=== PATIENT | female | born 1990 | race Caucasian/White ===

== ENCOUNTER 2019-04-17 09:42 | Inpatient (IN) | payer MEDICAID ==
[~2019-04-17] VITALS: Ht 167.6 cm; Wt 128.2 kg
[~2019-04-17 09:42] MED LIST: ELIM TOP; PERM120L5 TP
[2019-04-17 10:06] VITALS: BP 119/65; PULSE 107; RESP 19; Ht 167.6 cm; Wt 128.2 kg
--- NOTE | 2019-04-17 11:37 | TRIAGE ---
OB Triage Datetime Report Generated by CPN: 04/17/2019 11:37 Datetime: 04/17/2019 11:12 Membrane Status: Ruptured Datetime: 04/17/2019 10:13 Assessment Type: Triage Maternal Assessment Level of Consciousness: Keenly Alert, Responsive DTR's/Clonus: DTRs 2+; No Clonus Headache: Denies Blurred Vision: No Respiratory Effort: Unlabored; Regular Rhythm; Equal Expansion Breath Sounds, Left: Clear and Equal Breath Sounds, Right: Clear and Equal Nausea/Vomiting: Denies RUQ Epigastric Pain: Denies Lower Extremities Edema: None Degree: None Upper Extremities Edema: None Degree: None Facial Edema: None Fall Risk Assessment History of Falling: (0) No Secondary Diagnosis: (0) No Ambulatory Aid: (0) Bedrest/Nurse Assist IV Therapy: (0) No Gait: (0) Normal/Bedrest/Immobile Mental Status: (0) Oriented to Own Ability Fall Score: 0 Fall Risk Score Definition: No Risk: No action required Datetime: 04/17/2019 10:11 Time of Arrival: 04/17/2019 09:36 EGA: 36.3 Arrived By: Ambulatory Arrived From: Office Chief Complaint: LEAKING Movement: Present Contractions: Denies/Absent Rupture of Membranes: Unsure Vaginal Bleeding: None Vaginal Discharge: Present Recent Sexual Intercouse: Denies Abdominal Trauma: Not Applicable Patient Complaints: Contractions; Cramping Time Provider Notified: 04/17/2019 11:15 Provider Notified: dr burt Initial Plan: NST BPP AND ROM+ Datetime: 04/17/2019 10:03 Vaginal Exam Dilatation (cms): 3.0 Effacement (%): 60 Station: -2 Exam By: Tianna SARMIENTO
[2019-04-17] MEDS ORDERED: LACTATED RINGER'S 1,000 ML IV PRN (11:41)
[2019-04-17] MEDS ORDERED: BUTORPHANOL 2 MG INJ IV PRN ×2 (12:00)
[2019-04-17] MEDS ORDERED: AMPICILLIN 2 GM/NS (PMX) 100 ML IV ONE (12:00)
[2019-04-17] MEDS ORDERED: OXYTOCIN 30 UNITS/LR 500 ML IV SCH ×3 (12:00)
[2019-04-17] MEDS ORDERED: IBUPROFEN 600 MG TAB PO PRN (12:00)
[2019-04-17] MEDS ORDERED: OXYTOCIN 30 UNITS/LR 500 ML IV PRN (12:00)
[2019-04-17] MEDS ORDERED: CARBOPROST 250 MCG INJ IM PRN (12:00)
[2019-04-17] MEDS ORDERED: BETAMET NA PHOS/AC(6 MG/ML) 2 ML INJ SYG IM ONE (12:00)
[2019-04-17] MEDS ORDERED: LIDOCAINE 1% (MPF) 30 ML INJ INJ PRN (12:00)
[2019-04-17] MEDS ORDERED: MISOPROSTOL 200 MCG TAB PR PRN (12:00)
[2019-04-17] MEDS ORDERED: METHYLERGONOVINE 0.2 MG INJ IM PRN (12:00)
[2019-04-17] MEDS: LACTATED RINGER'S 1,000 ML IV SCH ×2 (12:34→21:45)
[2019-04-17] MEDS: AMPICILLIN 1 GM/NS (PMX) 50 ML IV SCH ×2 (17:18→20:54)
[2019-04-17] MEDS ORDERED: INSULIN REGULAR, HUMAN 100 UNIT/1 ML 3ML VIAL SC ONE (17:30)
[2019-04-17] MEDS ORDERED: DEXTROSE 50% 50 ML SYRINGE IV PRN ×2 (18:00)
[2019-04-17] MEDS ORDERED: GLUCOSE GEL 15 GRAM TUBE PO PRN ×2 (18:00)
[2019-04-17] MEDS ORDERED: GLUCOSE GEL 15 GRAM TUBE BUCCAL PRN (18:00)
[2019-04-17] MEDS ORDERED: GLUCAGON 1 MG INJ IM PRN (18:00)
--- NOTE | 2019-04-17 19:34 | QN ---
Documentation Comment progress note patient seen and evaluated no complaints vs stable afebrile ab gravid nt extremity no edema no calf tenderness ve 4-5/60/-2 srom fhr cat 1 toco regular a/ iup at 36 wks ga with prom, admitted for induction with pitocin currently in labor p/ anticipate vaginal delivery SILVIA HERNANDEZ MD Apr 17, 2019 19:33
--- NOTE | 2019-04-17 21:33 | PREAC ---
Date/Time of Note Date/Time of Note DATE: 04/17/19 TIME: 21:33 Anesthesia Eval and Record Evaluation Time Pre-Procedure Interview DATE: 04/17/19 TIME: 21:33 Age 28 Sex female NPO: 8 hrs Preoperative diagnosis intrauterine Planned procedure labor epidural Past Medical History Past Medical History: Includes : Gestational age: (36), Gestational diabetes Surgery & Anesthesia Issues No known issue Meds Anticoagulation: No Beta Mary within 24 hr: No Reason Beta Mary not given: Pt. not on B-Mary Active Scripts Permethrin (Permethrin) 118 Ml Liquid, 118 ML TP QHS, #2 EA Prov:OLIVIA BEAVERS 01/01/16 Permethrin* (Elimite*) 5% Cr, 1 APPLIC TOP ONCE, #1 TUB Prov:SHIRA ROBERT PA-C 12/17/15 Current Medications Lactated Ringer's 1,000 ml @ 125 mls/hr Q8H IV Last administered on 04/17/19at 12:34; Admin Dose 125 MLS/HR; Start 04/17/19 at 11:41 Ampicillin 50 ml @ 100 mls/hr Q4H IV Last administered on 04/17/19at 20:54; Admin Dose 100 MLS/HR; Start 04/17/19 at 16:00 Butorphanol Tartrate (Stadol) 1 mg Q2H PRN IV .PAIN SCALE 1-5; Start 04/17/19 at 12:00 Butorphanol Tartrate (Stadol) 2 mg Q2H PRN IV .PAIN SCALE 6-10; Start 04/17/19 at 12:00 Lidocaine (Xylocaine 1% (Mpf)) 30 ml ONCE PRN INJ .EPISIOTOMY; Start 04/17/19 at 12:00 Oxytocin/Lactated Ringer's 500 ml @ 500 mls/hr ONCE POST IV ; Start 04/17/19 at 12:00 Oxytocin/Lactated Ringer's 500 ml @ 125 mls/hr POST IV ; Start 04/17/19 at 12:00 Ibuprofen (Motrin) 600 mg ONCE PRN PO .PAIN 1-5; Start 04/17/19 at 12:00 Lactated Ringer's 1,000 ml @ 2,000 mls/hr Q30M PRN IV .ANESTHESIA Last admin istered on 04/17/19at 20:52; Admin Dose 2,000 MLS/HR; Start 04/17/19 at 11:41 Oxytocin/Lactated Ringer's 500 ml @ 0 mls/hr ONCE PRN IV .VAGINAL BLEEDING; Start 04/17/19 at 12:00 Methylergonovine Maleate (Methergine) 0.2 mg ONCE PRN IM .VAGINAL BLEEDING; Start 04/17/19 at 12:00 Carboprost Tromethamine (Hemabate) 250 mcg ONCE PRN IM .VAGINAL BLEEDING; Start 04/17/19 at 12:00 Misoprostol (Cytotec) 1,000 mcg ONCE PRN WA .VAGINAL BLEEDING; Start 04/17/19 at 12:00 Oxytocin/Lactated Ringer's 500 ml @ 0 mls/hr FOR AUGMENTATION IV Last administered on 04/17/19at 14:57; Admin Dose 1 MLS/HR; Start 04/17/19 at 12:00 Insulin Aspart (Novolog Insulin Pen) Check Blood gluc... Q4 SC ; Start 04/17/19 at 21:00 Miscellaneous Information 1 ea NOTE XX ; Start 04/17/19 at 18:00 Glucose (Glutose) 15 gm Q15M PRN PO DECREASED GLUCOSE; Start 04/17/19 at 18:00 Glucose (Glutose) 22.5 gm Q15M PRN PO DECREASED GLUCOSE; Start 04/17/19 at 18:00 Dextrose (D50w Syringe) 25 ml Q15M PRN IV DECREASED GLUCOSE; Start 04/17/19 at 18:00 Dextrose (D50w Syringe) 50 ml Q15M PRN IV DECREASED GLUCOSE; Start 04/17/19 at 18:00 Glucagon (Glucagen) 1 mg Q15M PRN IM DECREASED GLUCOSE; Start 04/17/19 at 18:00 Glucose (Glutose) 15 gm Q15M PRN BUCCAL DECREASED GLUCOSE; Start 04/17/19 at 18:00 Meds reviewed: Yes Allergies Coded Allergies: No Known Allergy (Unverified , 12/17/15) Allergies Reviewed: Yes Labs/Studies Labs Reviewed: Reviewed by anesthesiologist Result Diagram: 04/17/19 1215 04/17/19 1215 Laboratory Tests 04/17/19 12:15 Blood Bank Test 04/17/19 12:15 Antibody Identification Completed Antibody Screen POSITIVE Blood Type B NEGATIVE test: N/A Pre-procedure Exam Last vitals Vital Signs Date Temp Pulse Resp B/P (MAP) Pulse Ox O2 O2 Flow FiO2 Time Delivery Rate 04/17/19 97.9 107 19 119/65 Room Air 10:06 (83) Airway: Adequate mouth opening, Adequate thyromental dist Mallampati: Mallampati II Teeth: Normal Lung: Normal Heart: Normal ASA Physical Status ASA physical status: 2 Emergency: None Planned Anesthetic Neuraxial: Epidural Planned Pain Management Epidural, Parenteral pain med Pre-operative Attestations Prior to commencing anesthesia and surgery, the patient was re-evaluated, there was verification of: *The patient's identity *The results of appropriate recent lab work and preoperative vital signs *The above evaluation not changing prior to induction *Anesthetic plan, risk benefits, alternative and complications discussed with patient/family; questions answered; patient/family understands, accepts and wishes to proceed. YAMIL ANDERSON MD Apr 17, 2019 21:33
[2019-04-17] MEDS ORDERED: FENTAnyl 2MCG/ML-ROPIV 0.2% 100 ML ONE (21:36)
[2019-04-17] MEDS ORDERED: ONDANSETRON 4 MG INJ IV PRN (22:00)
[2019-04-17] MEDS ORDERED: DIPHENHYDRAMINE 50 MG INJ IV PRN (22:00)
[2019-04-17] MEDS ORDERED: NALOXONE (0.4 MG/ML) INJ IV PRN (22:00)
--- NOTE | 2019-04-17 22:13 | PAC ---
Date/Time of Note Date/Time of Note DATE: 04/17/19 TIME: 22:13 Post-Anesthesia Notes Post-Anesthesia Note Last documented vital signs Vital Signs Date Temp Pulse Resp B/P (MAP) Pulse Ox O2 O2 Flow FiO2 Time Delivery Rate 04/17/19 97.9 107 19 119/65 Room Air 10:06 (83) Activity: WNL Respiratory function: WNL Cardiovascular function: WNL Mental status: Baseline Pain reasonably controlled: Yes Hydration appropriate: Yes Nausea/Vomiting absent: Yes Comments BP: 118/78 HR: 99 RR: 16 T: 97.9 SaO2: 98% YAMIL ANDERSON MD Apr 17, 2019 22:13
[2019-04-17] MEDS: INSULIN ASPART [NOVOLOG] 3 ML PEN SC SCH (22:27)
[2019-04-18] MEDS: AMPICILLIN 1 GM/NS (PMX) 50 ML IV SCH ×5 (00:13→16:35)
[2019-04-18] MEDS: INSULIN ASPART [NOVOLOG] 3 ML PEN SC SCH ×3 (01:18→09:00)
[2019-04-18] MEDS: LACTATED RINGER'S 1,000 ML IV SCH ×2 (05:49→15:02)
[2019-04-18] MEDS: FENTAnyl 2MCG/ML-ROPIV 0.2% 100 ML BAG EPI SCH ×2 (05:51→14:04)
--- NOTE | 2019-04-18 17:12 | LDN ---
Date/Time of Note Date/Time of Note DATE: 04/18/19 TIME: 17:08 Delivery Summary of normal male infant Weeks of Gestation 36w4d Placenta Delivered: Manually Meconium: none Episiotomy: No Perineal laceration: 0 Anesthesia type: Epidural Estimated blood loss: 150 Sponge & Needle done & correct: Yes All needle counts correct: Yes Any foreign bodies felt in the: No Delivery Information Sex Infant Sex: male Apgars 1 Minute: 8 5 Minute: 9 Suctioning Nose & mouth suctioned at iveth: Yes Delee suction performed: Yes Umbilical Cord Umbilical cord with: 3 Vessels Cord presentations: no nuchal cord Cord Blood was obtained: Yes Mother & Baby Disposition Disposition Mom & Baby to Maternity; Good: Yes Mom transferred to: Other Baby to NICU: No VAHE MUSA MD Apr 18, 2019 17:12
--- NOTE | 2019-04-18 17:25 | HP ---
Date/Time of Note Date/Time of Note DATE: 04/18/19 TIME: 17:15 OB - History Hx of Present Free Text/Dictation 28y.o here at triage at 36w3d with c/o leaking fluid with occasional Uterine contractions initial VE 3/60/-2 clear fluid GBS not known course was unevenful admitted for expectant management. Past Family/Social History * Past Medical, Surgical, Family and Obstetric Histories reviewed from chart. OB Admission Exam Vital Signs Vital Signs Vital Signs Date Temp Pulse Resp B/P (MAP) Pulse Ox O2 O2 Flow FiO2 Time Delivery Rate 04/17/19 97.9 107 19 119/65 Room Air 10:06 (83) Physical Exam HEENT: WNL Heart: Rhythm Normal Lungs: Clear, Equal Abdomen: WNL Extremities: Normal Reflexes: Normal Cervical Dilatation: 3cm Effacement: Other (60%) Station: -2 Membranes: Ruptured Amniotic Fluid: Clear Heart Rate: 140's Accelerations: Accelerations Present Decelerations: No Decelerations Varibility: Moderate Contractions on Admission: >10 Minutes Apart Intensity: Moderate Last 72 hourBlood Glucose Bedside Glucose - 72 Hours Test 04/17/19 17:16 04/17/19 20:58 04/18/19 00:08 04/18/19 01:13 Bedside 210 131 144 135 Glucose mg/dL (70-220) mg/dL (70-220) mg/dL (70-220) mg/dL (70-220) Test 04/18/19 05:15 04/18/19 08:26 04/18/19 11:55 Bedside 110 112 90 Glucose mg/dL (70-220) mg/dL (70-220) mg/dL (70-220) Last 72 hours Lab Results CBC & BMP 04/17/19 12:15 OB Assessment/Plan Other Assessment: A IUP 36w3d PPROM Plan: Expectant Management, Other (Pitocin augmentation and ampicillin) VAHE MUSA MD Apr 18, 2019 17:25
[2019-04-18 19:15] VITALS: BP 118/59; PULSE 79; RESP 18
[2019-04-18] MEDS ORDERED: CARBOPROST 250 MCG INJ IM PRN (19:30)
[2019-04-18] MEDS ORDERED: WITCH HAZEL/GLYCERIN PAD PR PRN (19:30)
[2019-04-18] MEDS ORDERED: MISOPROSTOL 200 MCG TAB PR PRN (19:30)
[2019-04-18] MEDS ORDERED: METHYLERGONOVINE 0.2 MG INJ IM PRN (19:30)
[2019-04-18] MEDS ORDERED: OXYTOCIN 30 UNITS/LR 500 ML IV PRN (19:30)
[2019-04-18] MEDS ORDERED: OXYCODONE/ASPIRIN (4.88/325) TAB PO PRN ×2 (19:30)
[2019-04-18] MEDS ORDERED: BENZOCAINE 20% 56 ML SPRAY TOP PRN (19:30)
[2019-04-18] MEDS ORDERED: ZOLPIDEM 5 MG TAB PO PRN (19:30)
[2019-04-18] MEDS: SENNA/DOCUSATE NA (8.6MG/50MG) TAB PO SCH (21:02)
[2019-04-19] MEDS: LANOLIN HPA 1 PKT TOP PRN (00:33)
[2019-04-19] MEDS: IBUPROFEN 600 MG TAB PO SCH ×4 (00:33→19:08)
[2019-04-19 04:00] VITALS: BP 115/61; PULSE 75; RESP 18
[2019-04-19] MEDS: SENNA/DOCUSATE NA (8.6MG/50MG) TAB PO SCH ×2 (08:29→21:54)
[2019-04-19 08:30] VITALS: BP 110/55; PULSE 74; RESP 16
[2019-04-19 12:15] VITALS: BP 104/52; PULSE 63; RESP 18
[2019-04-19 16:59] VITALS: BP 112/57; PULSE 79; RESP 18
--- NOTE | 2019-04-19 19:41 | PN ---
Date/Time of Note Date/Time of Note DATE: 04/19/19 TIME: 19:38 OB Subjective Subjective Subjective PPD# 1 Patient is doing well. She denies nausea, vomiting, shortness of breath, chest pain, headache. She has been ambulating without difficulty, tolerating regular diet. Pain is well controlled on current medications OB Objective Objective Objective Vital Signs Date Temp Pulse Resp B/P (MAP) Pulse Ox O2 O2 Flow FiO2 Time Delivery Rate 04/19/19 97.5 79 18 112/57 16:59 (75) 04/19/19 Room Air 12:15 General: AAO X 3, comfortable, NAD, appropriate mood and affect. ABD: +BS. Soft, non-tender. Uterus 2 cm below umbilicus Flank: No CVA tenderness (B/L) LE: Mild edema. No clubbing, cyanosis, thigh or calf tenderness (B/L). Homans 'sign is negative OB Assessment/Plan Other plan: 28-year-old -1-0-3 s/p normal vaginal delivery. PPD#1 - AF, VSS - Contraception methods with R/B/A/FR discussed - Follow-up by primary OB - Cont current management JORDAN RM Apr 19, 2019 19:41
[2019-04-19 21:00] VITALS: BP 117/58; PULSE 87; RESP 18
[2019-04-20] MEDS: IBUPROFEN 600 MG TAB PO SCH ×3 (00:21→11:58)
[2019-04-20 03:50] VITALS: BP 106/55; PULSE 99; RESP 17
[2019-04-20 08:00] VITALS: BP 111/53; PULSE 69; RESP 18
[2019-04-20] MEDS ORDERED: DIPHTH/TET/ACEL PERTUSS (ADULT) 0.5 ML VIAL IM* ONE (09:00)
[2019-04-20] MEDS: LANOLIN HPA 1 PKT TOP PRN ×2 (10:09→11:58)
[2019-04-20] MEDS: SENNA/DOCUSATE NA (8.6MG/50MG) TAB PO SCH (10:09)
[2019-04-20 16:20] VITALS: BP 108/60; PULSE 54; RESP 16
--- NOTE | 2019-04-20 16:31 | PD.PPDC ---
PV DESIGN AND INSTALLATION TECHNICIAN Discharge Instruction Condition [id number] Patient Condition: Liink0a Fair Diet [id number] Diet: Ieetm4r Resume Regular Diet Activity/Restrictions [id number] Activity: [id number] Normal Activity May Shower [id number] Restrictions: Hoydp0a No Exercising No Lifting No Driving No Sexual Activity Nothing in the Vagina No [place] No Tampons, douche Follow-up Follow-up with Physician: 3, Week/Weeks Return to clinic for [id number] RN LPN LVN Instructions: [id number] Fever greater than 101 Chills Worsening abdominal pain Excessive Vaginal Bleeding More than 2 pads per hour Unable to tolerate diet [id number] OB Instructions: Ipzxd0c Breast Tenderness Depression Blurried Vision Headache [id number] Surgical Instructions: [id number] Incisional Drainage Incisional Redness SILVIA HERNANDEZ MD Apr 20, 2019 16:31
--- NOTE | 2019-04-21 19:09 | DELSUM ---
Delivery Summary A-C Datetime Report Generated by CPN: 04/21/2019 19:09 DELIVERY PERSONNEL Blasting Worker: Fritz, [place] MATERNAL INFORMATION Delivery Anesthesia: Epidural Medications in Delivery: pitocin Delivery QBL (ml): 152 Placenta Cultured: No Maternal Complications: Other Other Maternal Complications: a1dm LABOR SUMMARY EDC: 05/12/2019 00:00 No. Babies in Womb: 1 Attempted: No Labor Anesthesia: Epidural LABOR INFORMATION Reason for Induction: Not Applicable Onset of Labor: 04/16/2019 19:00 Complete Dilatation: 04/18/2019 16:20 Group B Beta Strep: Not Done Antibiotics # of Doses: 8 Antibiotics Time of Last Dose: 04/18/2019 16:35 Steroids Given: Partial Course; <24Hrs before Delivery Reason Steroids Not Administered: Not Applicable MEMBRANES Membranes Rupture Method: Spontaneous Rupture of Membranes: 04/16/2019 19:00 Length of Rupture (hr): 45.60 Amniotic Fluid Color: Clear Amniotic Fluid Amount: None Amniotic Fluid Odor: Normal STAGES OF LABOR Stage 1 hr: 45 Stage 1 min: 20 Stage 2 hr: 0 Stage 2 min: 16 Stage 3 hr: 0 Stage 3 min: 4 Total Time in Labor hr: 45 Total Time in Labor min: 40 VAGINAL DELIVERY Episiotomy: None Laceration Extension: N/A Laceration Type: None Laceration Repair: No Initial Vag Sponge Count: 10 Final Vag Sponge Count: 10 Initial Vag Sharps Count: 1 Final Vag Sharps Count: 1 Sponge Count Correct: Yes; Vaginal Sweep Performed Sharps Count Correct: Yes BABY A INFORMATION Infant Delivery Date/Time: 04/18/2019 16:36 Method of Delivery: Vaginal Born in Route : No : N/A Forceps: N/A Vacuum Extraction: N/A Shoulder Dystocia : No SHOULDER DYSTOCIA BABY A Infant Delivery Date/Time: 04/18/2019 16:36 PRESENTATION/POSITION BABY A Presentation: Cephalic Cephalic Presentation: Vertex Vertex Position: Left Occipital Anterior Breech Presentation: N/A PLACENTA INFORMATION BABY A Placenta Delivery Time : 04/18/2019 16:40 Placenta Method of Delivery: Spontaneous Placenta Status: Delivered SCORES BABY A Heart Rate 1 min: >100 bpm Resp Effort 1 min: Good Cry Reflex Irritability 1 min: Cough/Sneeze/Pulls Away Muscle Tone 1 min: Active Motion Color 1 min: Blue/Pale Resuscitation Effort 1 min: Tactile Stimulation SCORE 1 MIN: 8 Heart Rate 5 min: >100 bpm Resp Effort 5 min: Good Cry Reflex Irritability 5 min: Cough/Sneeze/Pulls Away Muscle Tone 5 min: Active Motion Color 5 min: Body [place], Extremit Blue SCORE 5 MIN: 9 INFORMATION BABY A Gestational Age at Delivery: 36.4 Gestational Status: Late - 34- 36.6 Weeks Outcome : Liveborn, with signs of life Condition : Stable Infant Sex: Female IDENTIFICATION/MEDS BABY A ID Band Number: [id number] ID Band Location: Right Leg; Left Arm Sensor Applied: Yes Sensor Number: [id number] Sensor Location : Cord Clamp WEIGHT/LENGTH BABY A Infant Birthweight (gm): 3530 Weight (lb): 7 Weight (oz): 13 Infant Length (in): 18.50 Length (cm): 46.99 CORD INFORMATION BABY A No. Cord Vessels: 3 Nuchal Cord : N/A Cord Blood Taken: Yes Suction: Mouth; Nose ASSESSMENT BABY A Complications: None Physical Findings at Delivery: Within Normal Limits Infant Respirations: Appears Normal Blasting Worker/ALS Called : No Infant Care By: ramonita Transferred To: Remains with Mother
--- NOTE | 2019-05-06 17:59 | DS ---
Date/Time of Note Date/Time of Note DATE: 05/06/19 TIME: 17:58 Obstetrical Discharge Record Final Diagnosis Final Diagnosis: delivered (36 wks ga) Vaginal Delivery Obstetrical Delivery: Spontaneous Condition on Discharge Physical Assessment Last Vitals: stable Voiding: Yes Bowel Movement: Yes Breast: Soft, non-tender, Filling Fundus: Firm Abdomen and Incision: soft nt Calf Tenderness: No Patient Condition: Fair SILVIA HERNANDEZ MD May 06, 2019 17:59
== END 2019-04-20 18:38 | disposition home or self-care (01) | DRG 807 ==
LOC: OBT 09:42 → L-D 09:42 → OBT 11:30 → L-D 11:30 → PP1 04-18 19:01
PROVIDERS: ADMIT Obstetrics & Gynecology; ATTEND Obstetrics & Gynecology
PROC: 10E0XZZ Delivery of Products of Conception, External Approach (ICD-10-PCS; principal; 2019-04-18)
DX: O42.913 Preterm premature rupture of membranes, unspecified as to length of time between rupture and onset of labor, third trimester (principal); O24.429 Gestational diabetes mellitus in childbirth, unspecified control; Z37.0 Single live birth; Z3A.36 36 weeks gestation of pregnancy
CPT/HCPCS: 62322; 76818; 80053; 82947; 82962; 84112; 85025; 85610; 85730; 86592; 86850; 86870; 86900; 86901; 87340; G0463; J0290; J0702; J1815; J2405; J2590; J3010; J7120